=== PATIENT | female | born 1970 | race African-American/Black ===

== ENCOUNTER 2025-07-13 22:31 | Emergency (ER) | payer BC, SELFPAY ==
[2025-07-13 22:34] VITALS: BP 173/102
[2025-07-13 22:35] VITALS: BP 173/102
[2025-07-13] MEDS: BENADRYL 50 MG IV (22:45)
[2025-07-13] MEDS: DECADRON 20 MG IV (22:45)
[2025-07-13] MEDS: PEPCID 20 MG IV (22:45)
[2025-07-13] MEDS: ADRENALIN 0.3 MG IM (22:45)
[2025-07-13] MEDS: NSS 1000 IV (22:46)
[2025-07-13 22:57] VITALS: BP 166/102
[2025-07-13 23:00] VITALS: BP 165/109; BMI 26.5
--- NOTE | 2025-07-13 23:21 | ED.GENMED ---
History of Present Illness
General
Chief Complaint: Allergic Reaction
Source: patient and family (Daughter as well as friend at bedside)
Exam Limitations: none
Time Seen by Provider: 07/13/25 22:33
History of Present Illness
History of Present Illness:
This is a 55-year-old woman with history of esl-hyndkfu-zexpbnixt diabetes, maintained on Ozempic who presents with acute allergic reaction which began approximately 30 minutes ago. No history of similar episodes in the past.
She is visiting family and for dinner tonight consumed a fair amount of blue crabs as well as shrimp and consumed 1 alcoholic beverage. Approximately 30 minutes ago she developed sudden onset of generalized itching, facial and lip swelling, mild
tongue swelling, anxiousness. She arrives via private auto and reportedly vomited once en route to the hospital. She denies abdominal pain but admits that she feels the need to pass a bowel movement.
She denies sore throat nor a sense of her throat closing.
No prior history of allergic reactions including no prior history of shrimp nor seafood allergy.
No recent antibiotic use.
Past History
Past History
ED Past Medical History: NIDDM
ED Past Surgical History: None
Social History
Tobacco: Non-smoker
Alcohol: Occasional
Drug: None
Living: with family
Employment: Not employed
Family History
Family History: Other (Noncontributory)
Phy Exam
Physical Exam
Physical Exam:
GENERAL: 55-year-old woman appears her stated age, awake and alert, oriented x 3, significantly anxious, tremulous, appears in moderate distress. Several family members accompanying.
EYE: pupils equal and reactive. anicteric
NECK: Supple, nontender, no meningismus, no significant adenopathy.
ENT: There is mild periorbital edema, mild lip edema and very mild tongue edema, posterior pharynx is clear without edema, oral mucosa is moist. TM clear b/l, nares patent. There is no stridor nor cough appreciated, no shortness of breath.
CARDIAC: Regular rhythm, tachycardic at 130. no murmur.
LUNGS: Clear breath sounds bilaterally, no acute respiratory distress, no wheezes/rales/rhonchi
ABDOMEN: Soft, nondistended, without focal tenderness, no r/g, no cvat. normoactive BS.
NEUROLOGICAL: Alert and oriented x3, no focal neuro deficits. Anxious, mildly tremulous.
SKIN: Warm and dry, mild global erythema with few scattered urticarial eruptions to upper extremities, upper back, mild angioedema bilateral periorbital, lips and tongue.
MUSCULOSKELETAL: No C/C/E. peripheral pulses are full and equal b/l. No palpable tenderness.
PSYCH: Anxious, tremulous. Cooperative.
Course
Orders/Labs/Results
Orders:
Orders
07/13/25 22:34
Dexamethasone Sod Phosphate [Decadron] 20 mg .ROUTE .STK-MED ONE
Diphenhydramine [Benadryl] 50 mg .ROUTE .STK-MED ONE
07/13/25 22:35
Famotidine [Pepcid] 20 mg .ROUTE .STK-MED ONE
07/13/25 22:36
EPINEPHrine PF [Adrenalin] 1 mg .ROUTE .STK-MED ONE
07/13/25 22:43
Diphenhydramine [Benadryl] 50 mg IV NOW STA
07/13/25 22:44
Dexamethasone Sod Phosphate [Decadron] 20 mg IV NOW STA
Famotidine [Pepcid] 20 mg IV NOW STA
07/13/25 22:45
0.9% Sodium Chloride 1000 ml [Nss] 1,000 ml IV BOLUS
EPINEPHrine PF [Adrenalin] 0.3 mg IM NOW STA
Vital Signs
Initial and Last Documented VS:
Initial Vital Signs
Temp Pulse Resp BP Pulse Ox
98.0 F 137 18 173/102 96
07/13/25 22:34 07/13/25 22:34 07/13/25 22:34 07/13/25 22:34 07/13/25 22:34
Last Documented Vital Signs
Temp Pulse Resp BP Pulse Ox
98.0 F 96 13 123/81 96
07/13/25 22:34 07/14/25 01:00 07/14/25 01:00 07/14/25 01:00 07/14/25 01:00
MDM/Problems Addressed
Differential Diagnosis Includes:
History and exam consistent with acute anaphylaxis.
Facial angioedema, mild tongue edema but at this point no evidence of posterior pharyngeal edema, no evidence of airway nor respiratory compromise.
No history of asthma, no history of hereditary angioedema and she is not maintained on THIERRY inhibitor's.
She is anxious, tachycardic but otherwise hemodynamically stable. No respiratory distress, no cough, no airway compromise.
Will treat with an IM dose of epinephrine 0.3 mg, establish IV and give an IV dose of Decadron, Benadryl, Pepcid as well as IV fluids.
telephone supervisor, pulse ox. Frequent vital signs.
Chronic conditions affecting care: DM
*Pulse Oximetry
SaO2: 98
Oxygen Mode of Delivery: Room air
Patient hypoxic: no
*Sleeve Wheel Maker Interpretation
Rate: tachycardiac
Interpretation: abnormal
Rhythm: sinus
*Critical Care Note
Total Time (30-74mins, 75-104mins- exclusive of procedures): 30
comment:
Critical care statement: A total of 30 minutes of critical care time was provided for this patient. This includes management of unstable vital signs, evaluation of the patient at bedside, reviewing the patient's pertinent medical records, discussion
with consultants, review of old EKGs and review of pertinent medical records. This time with separate from time utilized to perform the aforementioned documented procedures
Comment
Comment:
Initially upon presentation patient at significant risk for progression of anaphylaxis, airway compromise, hemodynamic instability.
Requiring emergent intervention with epinephrine, Benadryl, Pepcid, Decadron, IV fluids, monitoring.
Will continue close and frequent observation for deterioration/change in status.
Update Note
Update Note:
23:00
Anaphylaxis symptoms quickly improving after IM dose of epinephrine.
Sinus tachycardia is improving. Urticaria resolving.
She continues to deny chest pain or shortness of breath nor abdominal pain.
IV fluids infusing.
Will continue siebel consultant and close monitoring.
ED Attending Note
-
Portions of this chart may have been created with voice recognition software.� Occasional wrong word or��sound alike� substitutions may have occurred due to the inherent limitations of voice recognition software.
Discharge Plan
Departure
Discharge Problem:
Acute anaphylaxis
Instructions: Anaphylaxis
Prescriptions:
New
epinephrine [EpiPen] 0.3 mg/0.3 mL Auto-Injector
0.3 mg IM .STAT PRN (Reason: anaphylaxis) Qty: 1 0RF
prednisone 50 mg tablet
50 mg PO DAILY Qty: 5 0RF
cetirizine [Zyrtec] 10 mg tablet
10 mg PO DAILY Qty: 14 0RF
famotidine [Pepcid] 20 mg tablet
20 mg PO BID Qty: 30 0RF
Interventions
Interventions:
*Risk Screen - Suicide Last Done: 07/13/25 22:34
*General Assessment Last Done: 07/13/25 22:34
*Neglect/Abuse Screening Last Done: 07/13/25 22:34
*ED- Fall Risk Assessment Last Done: 07/13/25 22:34
*ED COVID-19 Vaccine History Last Done: 07/13/25 22:34
ED- Cardiac Assessment Last Done: 07/13/25 22:47
ED- Pulmonary Assessment Last Done: 07/13/25 22:47
ED-Skin Assessment Last Done: 07/13/25 22:47
Discharge Date and Time
Print Language: MAURITIAN
[2025-07-14] VITALS: BP 134/97
[2025-07-14 01:00] VITALS: BP 123/81
[2025-07-14 01:46] VITALS: BP 121/79
== END 2025-07-14 01:57 | disposition home or self-care (01) ==
LOC: EMR 22:31
PROVIDERS: EMERGENCY PHYSICIAN Emergency Medicine
DX: T78.2XXA Anaphylactic shock, unspecified, initial encounter (principal); E11.9 Type 2 diabetes mellitus without complications; Z79.85 Long-term (current) use of injectable non-insulin antidiabetic drugs; X58.XXXA Exposure to other specified factors, initial encounter
CPT/HCPCS: 99291; 96374; 96375 ×2; 96361; 96372